=== PATIENT | female | born 2000 | race Caucasian/White ===

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

== ENCOUNTER 2023-01-23 06:29 | Emergency (ER) | payer SELFPAY ==
[~2023-01-23] VITALS: Ht 165 cm; Wt 95.7 kg
[~2023-01-23 06:29] MED LIST changes: -fentaNYL INJECTION 100 MCG/2 ML AMP ONE
--- NOTE | 2023-01-23 06:57 | ED EENT ---
History of Present Illness General Chief Complaint: Ear Problems Stated Complaint: EARACHE Nursing Triage Note: LEFT EARACHE SINCE 0300, MOTRIN AT 0400 Source: patient History of Present Illness Date Seen by Provider: Jan 23, 2023 Time Seen by Provider: 06:57 Initial Comments Patient is a 22-year-old female who presents to the emergency department today with a chief complaint of left ear pain. She woke up at about 3 AM with the pain, took some Tylenol, 2 extra strength as well as warm compresses also put some eardrops in her ear no relief of symptoms. She states she went to bed last night with it feeling "funny". No recent URI symptoms, sore throat or runny nose. She states she has had previous ear infections but its been at least a year. She is not COVID vaccinated. No concerns for COVID, no cough, shortness of breath, diarrhea, headache or fever. Timing/Duration: abrupt Severity: severe Location: ear (L) Prearrival Treatment: over the counter meds Associated Symptoms: other (Left neck pain) Allergies and Home Medications Allergies Coded Allergies: No Known Drug Allergies (Unverified , 09/13/17) Patient Home Medication List Home Medication List Reviewed: Yes Discontinued Medications Amoxicillin/Potassium Clav (Augmentin 875-125 Tablet) 1 Each Tablet, 1 EACH PO BID Discontinued Reason: No Longer Taking Prescribed by: OCTAVIO OSBORN on 01/17/18231 Last Action: Discontinued Naproxen (Naproxen) 500 Mg Tablet, 500 MG PO BID Discontinued Reason: No Longer Taking Prescribed by: OCTAVIO OSBORN on 01/17/18231 Last Action: Discontinued Tramadol HCl (Ultram) 50 Mg Tablet, 50 MG PO Q4H Discontinued Reason: No Longer Taking Prescribed by: OCTAVIO OSBORN on 01/17/18231 Last Action: Discontinued Review of Systems Review of Systems Constitutional: see HPI Ears: Pain (Left ear) Nose: no symptoms reported Mouth: no symptoms reported Throat: no symptoms reported Respiratory: no symptoms reported Cardiovascular: no symptoms reported Gastrointestinal: no symptoms reported Musculoskeletal: no symptoms reported Skin: no symptoms reported All Other Systems Reviewed Negative Unless Noted: Yes Past Jyjlvkk-Nasuoj-Onrqmq Hx Patient Social History Tobacco Use?: No Substance use?: No Alcohol Use?: No Pt feels they are or have been: No Immunizations Up To Date Tetanus Booster (TDap): More than 5yrs PED Vaccines UTD: No First/Initial COVID19 Vaccinat: NA Seasonal Allergies Seasonal Allergies: No Past Medical History Surgery/Hospitalization HX: C-SECT, T/A Surgeries: Yes Tonsillectomy Respiratory: No Currently Using CPAP: No Currently Using BIPAP: No Cardiac: No Neurological: No Last Menstrual Period: Dec 16, 2022 Reproductive Disorders: No Female Reproductive Disorders: Denies Sexually Transmitted Disease: No Genitourinary: No Gastrointestinal: No Musculoskeletal: No Endocrine: No HEENT: No Cancer: No Psychosocial: Yes Suicide Attempts, Depression Integumentary: Yes Eczema, Psoriasis Blood Disorders: No Adverse Reaction/Blood Tranf: No Family Medical History Patient reports no known family medical history. No Pertinent Family Hx Physical Exam Vital Signs Vital Signs - First Documented 01/23/23 06:36 Temp 36.8 Pulse 69 Resp 18 B/P (MAP) 122/72 (89) Pulse Ox 99 O2 Delivery Room Air Height, Weight, BMI Height: 5'3.00" Weight: 160lbs. 8.0oz. [id number]; 35.00 BMI Method:Stated General Appearance: WD/WN, mild distress (Crying, tearful) Eyes: bilateral eye normal inspection, bilateral eye PERRL, bilateral eye EOMI Ears: right ear other (Partial occlusion of the right tympanic membrane due to cerumen, visualized portions appear normal; left TM completely occluded by cerumen); bilateral ear auricle normal Nose: normal inspection Mouth/Throat: normal mouth inspection, pharynx normal Neck: full range of motion, supple, normal inspection, tender lateral (Mild tenderness left lateral, just below the ear) Cardiovascular: regular rate, rhythm Respiratory: lungs clear, normal breath sounds, no respiratory distress, no accessory muscle use Neurologic/Psychiatric: alert, other (Tearful) Skin: normal color, warm/dry Procedures/Interventions Ear : Ear Location: Left (Left) Foreign Body Removal: Impacted Cerumen Use of: Ear Curette, Irrigation Medications: colace Progress/Results/Core Measures Results/Orders My Orders Orders - LANDRY DARLING MD Urine Bedside (01/23/23 07:06) Ketorolac Injection (Toradol Injection) (01/23/23 07:15) Docusate Sodium Capsule (Colace Capsule) (01/23/23 07:15) Medications Given in ED Current Medications Medications Dose Ordered Sig/Yanet Route Start Time Stop Time Status Last Admin Dose Admin Docusate Sodium 300 mg ONCE ONCE PO 01/23/23 07:15 01/23/23 07:16 DC 01/23/23 07:14 300 MG Ketorolac Tromethamine 30 mg ONCE ONCE IM 01/23/23 07:15 01/23/23 07:16 DC 01/23/23 07:14 30 MG Vital Signs/I&O 01/23/23 01/23/23 06:36 07:14 Temp 36.8 36.8 Pulse 69 Resp 18 B/P (MAP) 122/72 (89) Pulse Ox 99 O2 Delivery Room Air Blood Pressure Mean: 89 Progress Progress Note : Time: 08:18 Progress Note Patient seen and examined, 22-year-old with acute onset left ear pain. Left ear was completely occluded by cerumen. Colace was used to instill into the left ear canal, allowed to sit for 10 to 15 minutes then irrigated with warm saline. Ear curette was then used to remove all of the wax. Was able to visualize a retracted dusky dark erythematous TM. Canal looks good. There was a speck of blood from cerumen disimpaction in the canal. Patient will be treated with amoxicillin 500 twice daily for 7 days. Recommended Claritin or Zyrtec or Asiya for decongestant. Return precautions provided. Patient states that her pain is much better after IM Toradol. All questions are sought and answered. Departure Impression Primary Impression: Left otitis media Qualified Codes: H66.92 - Otitis media, unspecified, left ear Additional Impression: Impacted cerumen of left ear Disposition: 01 HOME, SELF-CARE Condition: Improved Departure-Patient Inst. Decision time for Depature: 08:20 Referrals: [facility] (PCP/Family) Primary Care Physician Patient Instructions: Ear Infection ED, Ear Wax Impaction (DC) Add. Discharge Instructions: Take over the counter Ibuprofen 3 pills (600mg) every 6 hours with food as needed for pain, Warm compresses can also helo. Amoxicillin 500mg twice a day for 7 days. Finish the entire course. You should also take some over the counter Asiya OR Zyrtec OR Claritin daily while on the antibiotics for decongestant. Return to the ER for any worsening symptoms, especially fever, worsening ear pain or other emergent concerns. Scripts Amoxicillin (Amoxicillin) 500 Mg Capsule 500 MG PO BID for 7 Days, #14 CAP 0 Refills Prov: LANDRY DARLING MD 01/23/23 Copy Copies To 1: MATHEW RAI KATHRYN M MD Jan 23, 2023 06:57
[2023-01-23] MEDS ORDERED: KETOROLAC 30 MG/ML VIAL IM ONE (07:15)
[2023-01-23] MEDS ORDERED: DOCUSATE SODIUM 100 MG (COLACE) CAP PO ONE (07:15)
[2023-01-23] MEDS ORDERED: AMOX500C2 PO (08:23)
[2023-01-23 08:26] VITALS: BP 119/80
== END 2023-01-23 08:26 | disposition home or self-care (01) ==
LOC: EDUNIT# 06:29 → ER 06:31
DX: H66.92 Otitis media, unspecified, left ear (principal); H61.22 Impacted cerumen, left ear; Z28.310 Unvaccinated for COVID-19
CPT/HCPCS: 84703; 99284